=== PATIENT | male | born 1965 | race Caucasian/White ===

== ENCOUNTER 2019-01-15 10:46 | Day surgery (SDC) | payer OTHER ==
[~2019-01-15 10:46] MED LIST: CEFAZOLIN 1 GM INJ; CEFAZOLIN 2 GM/50 ML (PMX) 50 ML IVPB; PROPOFOL 200 MG INJ
[2019-01-15] MEDS: LACTATED RINGER'S 1,000 ML IV ×2 (11:58→13:59)
[2019-01-15] MEDS ORDERED: ROCURONIUM 50 MG INJ (12:34)
[2019-01-15] MEDS ORDERED: LIDOCAINE 2% (SDV) 5 ML INJ (12:34)
[2019-01-15] MEDS ORDERED: PROPOFOL 60 ML (12:34)
[2019-01-15] MEDS ORDERED: GLYCOPYRROLATE 0.4 MG INJ (13:31)
[2019-01-15] MEDS ORDERED: NEOSTIGMINE 3 MG/3 ML SYRINGE (13:31)
[2019-01-15] MEDS ORDERED: FUROSEMIDE 20 MG INJ (13:46)
[2019-01-15] MEDS: FUROSEMIDE 20 MG INJ IV (13:47)
[2019-01-15] MEDS ORDERED: hydrALAzine 20 MG INJ IV (14:00)
[2019-01-15] MEDS ORDERED: ONDANSETRON 4 MG INJ IV (14:00)
[2019-01-15] MEDS ORDERED: HYDROCODONE/APAP (5/325) TAB PO (14:00)
[2019-01-15] MEDS ORDERED: OXYCODONE/ACETAMINOPHEN (5/325) TAB PO ×2 (14:00)
[2019-01-15] MEDS ORDERED: LABETALOL HCL 20MG INJ IV (14:00)
[2019-01-15] MEDS ORDERED: KETOROLAC 30 MG INJ IV (14:00)
[2019-01-15] MEDS ORDERED: FENTAnyl 50 MCG/ML VIAL IV ×3 (14:00)
[2019-01-15] MEDS ORDERED: MEPERIDINE 25 MG INJ IV (14:00)
[2019-01-15] MEDS ORDERED: METOCLOPRAMIDE 10 MG INJ IV (14:00)
[2019-01-15] MEDS ORDERED: EPHEDrine 25 MG/5 ML SYG IV (14:00)
[2019-01-15] MEDS ORDERED: DIPHENHYDRAMINE 50 MG INJ IV (14:00)
[2019-01-15] MEDS: HYDROmorphONE 1 MG/5 ML IV SYRINGE IV ×2 (14:29→14:38)
[2019-01-15] MEDS: ONDANSETRON 4 MG INJ IV (14:30)
== END 2019-01-15 15:31 | disposition home or self-care (01) ==
LOC: SDS 10:46
DX: N20.0 Calculus of kidney (principal); I10 Essential (primary) hypertension; E11.9 Type 2 diabetes mellitus without complications; Z79.82 Long term (current) use of aspirin; Z79.84 Long term (current) use of oral hypoglycemic drugs
CPT/HCPCS: 50590; 74430; 82962

== ENCOUNTER 2019-01-19 00:37 | Inpatient (IN) | payer OTHER ==
[2019-01-19] MEDS: ONDANSETRON 4 MG INJ IV (01:16)
[2019-01-19] MEDS: SOD CHLORIDE 0.9% 1,000 ML IV ×4 (01:16→15:18)
[2019-01-19] MEDS: HYDROmorphONE 1 MG/ML SYG IV (01:16)
[2019-01-19 01:33] LABS: ADD MAN DIFF? NO
[2019-01-19 01:35] LABS: WHITE BLOOD COUNT 11.4 10^3/ul (4.8-10.8)
[2019-01-19 01:35] LABS: BASOPHIL # 0.1 10^3/ul (0.0-0.1); BASOPHILS % 0.5 % (0.0-2.0); EOSINOPHILS % 0.3 % (0.0-7.0); HEMOGLOBIN 13.1 g/dl (14.0-18.0); LYMPHOCYTES # 1.8 10^3/ul (0.8-2.9); LYMPHOCYTES % 15.7 % (15.0-51.0); MEAN CORPUSCULAR HEMOGLOBIN 27.5 pg (29.0-33.0); MEAN CORPUSCULAR HGB CONC 33.6 g/dl (32.0-37.0); MEAN CORPUSCULAR VOLUME 81.8 fl (82.0-101.0); MEAN PLATELET VOLUME 11.5 fl (7.4-10.4); MONOCYTE # 0.9 10^3/ul (0.3-0.9); MONOCYTES % 7.7 % (0.0-11.0); NEUTROPHIL # 8.6 10^3/ul (1.6-7.5); NEUTROPHILS % 75.4 % (39.0-77.0); PLATELET COUNT 209 10^3/UL (140-415); RED BLOOD COUNT 4.77 10^6/ul (4.70-6.10); RED CELL DISTRIBUTION WIDTH 12.6 % (11.5-14.5)
[2019-01-19 01:54] LABS: ALANINE AMINOTRANSFERASE 21 IU/L (13-69); ALBUMIN 4.3 g/dl (3.3-4.9); ALKALINE PHOSPHATASE 77 IU/L (42-121); ANION GAP 13 (5-13); ASPARTATE AMINO TRANSFERASE 17 IU/L (15-46); BILIRUBIN,INDIRECT 0.8 mg/dl (0-1.1); BILIRUBIN,TOTAL 0.8 mg/dl (0.2-1.3); BLOOD UREA NITROGEN 17 mg/dl (7-20); CALCIUM 9.3 mg/dl (8.4-10.2); CARBON DIOXIDE 26 mmol/L (21-31); CHLORIDE 96 mmol/L (97-110); CREATININE 0.73 mg/dl (0.61-1.24); Estimated GFR > 60 mL/min (>60); GLUCOSE 230 mg/dl (70-220); LIPASE 33 U/L (23-300); POTASSIUM 4.1 mmol/L (3.5-5.1); SODIUM 135 mmol/L (135-144); TOTAL PROTEIN 7.6 g/dl (6.1-8.1)
[2019-01-19] MEDS ORDERED: ACETAMINOPHEN 325 MG TAB PO (03:00)
[2019-01-19] MEDS ORDERED: DOCUSATE SODIUM 100 MG CAP PO (03:00)
[2019-01-19] MEDS ORDERED: HYDROmorphONE 0.5 MG/0.5 ML SYG IV (03:00)
[2019-01-19] MEDS ORDERED: BISACODYL (EC) 5 MG TAB PO (03:00)
[2019-01-19] MEDS ORDERED: ONDANSETRON 4 MG INJ IV (03:00)
[2019-01-19] MEDS: HYDROmorphONE 0.5 MG/0.5 ML SYG IV (03:24)
[2019-01-19] MEDS: TAMSULOSIN (SR) 0.4 MG CAP PO (03:29)
[2019-01-19 05:08] LABS: ADD MAN DIFF? NO
[2019-01-19] MEDS: NACL 0.9% 3 ML SYG IV (05:09)
[2019-01-19 05:13] LABS: BASOPHILS % 0.4 % (0.0-2.0); EOSINOPHILS % 0.3 % (0.0-7.0); HEMATOCRIT 36.8 % (42.0-52.0); HEMOGLOBIN 12.4 g/dl (14.0-18.0); LYMPHOCYTES # 2.2 10^3/ul (0.8-2.9); LYMPHOCYTES % 19.9 % (15.0-51.0); MEAN CORPUSCULAR HEMOGLOBIN 27.7 pg (29.0-33.0); MEAN CORPUSCULAR HGB CONC 33.7 g/dl (32.0-37.0); MEAN CORPUSCULAR VOLUME 82.1 fl (82.0-101.0); MEAN PLATELET VOLUME 11.5 fl (7.4-10.4); MONOCYTE # 0.8 10^3/ul (0.3-0.9); MONOCYTES % 7.6 % (0.0-11.0); NEUTROPHIL # 7.8 10^3/ul (1.6-7.5); NEUTROPHILS % 71.5 % (39.0-77.0); PLATELET COUNT 194 10^3/UL (140-415); RED BLOOD COUNT 4.48 10^6/ul (4.70-6.10); RED CELL DISTRIBUTION WIDTH 12.9 % (11.5-14.5)
[2019-01-19 05:13] LABS: WHITE BLOOD COUNT 10.9 10^3/ul (4.8-10.8)
[2019-01-19] MEDS ORDERED: DEXTROSE 50% 50 ML SYRINGE IV ×2 (05:30)
[2019-01-19] MEDS ORDERED: GLUCAGON 1 MG INJ IM (05:30)
[2019-01-19] MEDS ORDERED: GLUCOSE GEL 15 GRAM TUBE BUCCAL (05:30)
[2019-01-19] MEDS ORDERED: GLUCOSE GEL 15 GRAM TUBE PO ×2 (05:30)
[2019-01-19] MEDS ORDERED: hydrALAzine 20 MG INJ IV (05:30)
[2019-01-19 05:33] LABS: ALANINE AMINOTRANSFERASE 21 IU/L (13-69); ALBUMIN/GLOBULIN RATIO 1.42; ALKALINE PHOSPHATASE 59 IU/L (42-121); ANION GAP 11 (5-13); ASPARTATE AMINO TRANSFERASE 16 IU/L (15-46); BILIRUBIN,INDIRECT 0.5 mg/dl (0-1.1); BILIRUBIN,TOTAL 0.5 mg/dl (0.2-1.3); BLOOD UREA NITROGEN 18 mg/dl (7-20); CARBON DIOXIDE 25 mmol/L (21-31); CHLORIDE 101 mmol/L (97-110); CHOLESTEROL 122 mg/dl (100-200); CREATININE 0.86 mg/dl (0.61-1.24); Estimated GFR > 60 mL/min (>60); GLUCOSE 169 mg/dl (70-220); HDL CHOLESTEROL 30 mg/dl (28-71); LDL CHOLESTEROL,CALCULATED 66 mg/dl; MAGNESIUM 1.8 mg/dl (1.7-2.5); POTASSIUM 4.2 mmol/L (3.5-5.1); SODIUM 137 mmol/L (135-144); TOTAL PROTEIN 6.8 g/dl (6.1-8.1); TRIGLYCERIDES 131 mg/dl (0-149)
[2019-01-19 06:04] LABS: PROTIME 13.3 Sec (11.9-14.9)
[2019-01-19 06:05] LABS: PARTIAL THROMBOPLASTIN TIME 26.6 Sec (23.0-35.0)
[2019-01-19] MEDS: PANTOPRAZOLE (EC) 40 MG TAB PO (06:12)
[2019-01-19 08:03] LABS: HEMOGLOBIN A1C 8.4 % (0-5.9)
[2019-01-19] MEDS: INSULIN ASPART [NOVOLOG] 3 ML PEN SC ×3 (08:40→17:25)
[2019-01-19] MEDS: ATORVASTATIN 20 MG TAB PO (09:34)
[2019-01-19] MEDS: KETOROLAC 15 MG INJ IV (09:34)
[2019-01-19] MEDS: AMLODIPINE 10 MG TAB PO (09:34)
[2019-01-19 13:38] LABS: ADD UMIC YES; UR ASCORBIC ACID NEGATIVE (NEGATIVE); UR BACTERIA FEW /HPF (NONE SEEN); UR BILIRUBIN (Dip) NEGATIVE (NEGATIVE); UR BLOOD (Dip) 3+ mg/dL (NEGATIVE); UR CLARITY CLEAR (CLEAR); UR COLOR YELLOW (YELLOW); UR GLUCOSE (Dip) NEGATIVE (NEGATIVE); UR KETONES (Dip) NEGATIVE (NEGATIVE); UR LEUKOCYTE ESTERASE (Dip) NEGATIVE Leu/ul (NEGATIVE); UR MUCUS FEW /HPF (NONE SEEN); UR NITRITE (Dip) NEGATIVE (NEGATIVE); UR RBC 2 /HPF (0-5); UR SPECIFIC GRAVITY (Dip) 1.011 (1.003-1.030); UR TOTAL PROTEIN (Dip) NEGATIVE (NEGATIVE); UR UROBILINOGEN (Dip) NEGATIVE (NEGATIVE); UR WBC 3 /HPF (0-5)
[2019-01-19 16:20] LABS: PROCALCITONIN 0.07 ng/mL (0.00-0.10)
[2019-01-19] MEDS ORDERED: TAMSULOSIN (SR) 0.4 MG CAP PO (21:00)
[2019-01-20] MEDS ORDERED: ACCU-CHEK XX (02:00)
== END 2019-01-19 18:34 | disposition home or self-care (01) | DRG 694 ==
LOC: E/R 00:37 → MS1 03:06
DX: N20.2 Calculus of kidney with calculus of ureter (principal); E11.9 Type 2 diabetes mellitus without complications; I10 Essential (primary) hypertension
CPT/HCPCS: 36415; 71045; 74176; 80053; 80061; 81001; 82962; 83036; 83690; 83735; 84145; 84443; 85025; 85610; 85730; 87086; 96374; 96375; 99285-25